=== PATIENT | female | born 1990 | race Hispanic/Latino ===

== ENCOUNTER 2024-11-11 09:47 | Emergency (ER) | payer SELFPAY ==
[2024-11-11 10:18] LABS: Pregnancy Test - Urine (BHCG) Negative (Negative); Pregu Control Background? CLEAR/WHITE (CLR/WHITE); Pregu Control Bar Appear? YES (CONTROL BAR)
[2024-11-11 10:22] LABS: Bacteria/HPF 4+ HPF (None Seen); CAUTI Indications for Culture Dysuria,urgency,freq; Glucose, Urine (Dipstick) Normal (Negative); Leukocyte 250 Leu/uL (Negative); Protein, Urine (Dipstick) Negative (Neg-Trace); RBC/HPF 0-3 HPF (0-3); Specific Gravity, Urine 1.011 (1.002-1.036)
[2024-11-11 10:56] LABS: Urine Culture Reflex Yes Yes
== END 2024-11-11 11:20 | disposition home or self-care (01) ==
LOC: ERS 09:47
DX: N39.0 Urinary tract infection, site not specified (principal); R05.9 Cough, unspecified; F17.290 Nicotine dependence, other tobacco product, uncomplicated; Z55.6 Problems related to health literacy; Z75.3 Unavailability and inaccessibility of health-care facilities
CPT/HCPCS: 71046; 81001; 81025; 87077; 87086; 87186; 87428

== ENCOUNTER 2024-11-24 13:55 | Emergency (ER) | payer SELFPAY ==
[2024-11-24] MEDS ORDERED: cefTRIAXone (ROCEPHIN) 500 MG VIAL ONE ×2 (14:44→14:45)
[2024-11-24] MEDS ORDERED: Lidocaine 1% PF 5 ML VIAL ONE (14:45)
[2024-11-24 15:47] LABS: Pregnancy Test - Urine (BHCG) Negative (Negative); Pregu Control Background? CLEAR/WHITE (CLR/WHITE); Pregu Control Bar Appear? YES (CONTROL BAR)
[2024-11-24 21:23] LABS: Chlam.trachomatis by PCR,Urine Not Detected (NotDetected); GC N.gonorrhoeae PCR,UrineVOID Not Detected (NotDetected)
== END 2024-11-24 15:10 | disposition home or self-care (01) ==
LOC: ERS 13:55
DX: Z20.2 Contact with and (suspected) exposure to infections with a predominantly sexual mode of transmission (principal); Z87.891 Personal history of nicotine dependence
CPT/HCPCS: 81025; 87480; 87491; 87510; 87591; 87660; 96372; 99283; J0696